=== PATIENT | male | born 1975 | race Caucasian/White ===

== ENCOUNTER 2017-05-25 22:32 | Inpatient (IN) | payer OTHER ==
[~2017-05-25] VITALS: Ht 182.9 cm; Wt 77.9 kg
[2017-05-25] MEDS ORDERED: SODIUM CHLORIDE FLUSH 10ML SYR IVF ONE (23:00)
[2017-05-25] MEDS ORDERED: SODIUM CHLORIDE 0.9% 1,000ML IVBOLUS ONE (23:00)
[2017-05-25 23:53] LABS: ASPARTATE AMINO TRANSFERASE 65 U/L (15-37)
[2017-05-26 00:05] LABS: BLOOD UREA NITROGEN 159 mg/dL (7-18)
[2017-05-26 00:06] LABS: IS PT STATUS REG ER OR PRE ER? YES
[2017-05-26] MEDS ORDERED: PIPERACILLIN/TAZO/PMX 3.375GM 50 ML ONE (00:28)
[2017-05-26] MEDS ORDERED: SODIUM CHLORIDE 0.9% 1,000ML IVBOLUS ONE ×2 (00:30)
[2017-05-26] MEDS ORDERED: VANCOMYCIN PER PHARMACY IV ONE (00:30)
[2017-05-26] MEDS ORDERED: VANCOMYCIN 1,500 MG in SODIUM CHLORIDE 0.9% 250 ML IV ONE (00:30)
[2017-05-26] MEDS ORDERED: PIPERACILLIN/TAZO/PMX 3.375GM 50 ML IVPB ONE (00:30)
[2017-05-26 00:36] LABS: DAU SCREEN DISCLAIMER
[2017-05-26] MEDS ORDERED: SODIUM CHLORIDE 0.9% 1,000 ML IV ONE (00:59)
[2017-05-26] MEDS ORDERED: ONDANSETRON 2MG/ML, 2ML IVPush PRN ×2 (01:00→02:00)
[2017-05-26] MEDS ORDERED: BISACODYL 10 MG SUPP PR PRN (02:00)
[2017-05-26] MEDS ORDERED: ACETAMINOPHEN 325 MG TABLET PO PRN (02:00)
[2017-05-26] MEDS ORDERED: POLYETHYLENE GLYCOL 17 GM PACKET PO PRN (02:00)
[2017-05-26] MEDS ORDERED: DOCUSATE 100 MG CAPSULE PO PRN (02:00)
[2017-05-26] MEDS: HEPARIN 5,000 UNITS/ML, 1ML SQ SCH ×3 (02:00→19:51)
[2017-05-26 02:01] VITALS: BP 155/99
[2017-05-26 02:47] VITALS: BP 156/99
[2017-05-26] MEDS: POTASSIUM CHLORIDE 20 MEQ in SODIUM CHLORIDE 0.9% 1,000 ML IV SCH ×3 (03:35→22:25)
[2017-05-26 04:16] LABS: POTASSIUM,URINE RANDOM 31 mmol/L
[2017-05-26 05:24] LABS: BLOOD UREA NITROGEN 147 mg/dL (7-18)
[2017-05-26 05:30] LABS: HIV 1&2 ANTIBODY SCREEN Nonreactive (Nonreactive); HIV-1 p24 ANTIGEN Nonreactive (Nonreactive)
[2017-05-26 05:42] LABS: ASPARTATE AMINO TRANSFERASE 58 U/L (15-37)
[2017-05-26 05:44] LABS: ACETAMINOPHEN < 2 mcg/mL (10-30)
[2017-05-26 06:01] LABS: DIFF TOTAL CELLS COUNTED 100 CELL DIFF
[2017-05-26 06:02] LABS: VERIFY COUNTS? YES
[2017-05-26 07:47] VITALS: BP 152/96
[2017-05-26] MEDS: POTASSIUM CHLORIDE 20 MEQ TAB.ER.PRT PO SCH ×5 (10:10→20:20)
[2017-05-26 10:35] LABS: HEPATITIS C VIRUS ANTIBODY Nonreactive (Nonreactive)
[2017-05-26 12:14] LABS: IS PT STATUS REG ER OR PRE ER? NO
[2017-05-26 12:32] LABS: BLOOD UREA NITROGEN 143 mg/dL (7-18)
[2017-05-26 14:31] VITALS: BP 155/84
[2017-05-26 16:36] LABS: ASPARTATE AMINO TRANSFERASE 63 U/L (15-37)
[2017-05-26 16:38] LABS: BLOOD UREA NITROGEN 127 mg/dL (7-18); IS PT STATUS REG ER OR PRE ER? NO
[2017-05-26 16:49] LABS: DIFF TOTAL CELLS COUNTED 100 CELL DIFF
[2017-05-26 16:53] LABS: VERIFY COUNTS? YES
[2017-05-26] MEDS ORDERED: POTASSIUM CHLORIDE 40 MEQ in SODIUM CHLORIDE 0.9% 500 ML IV ONE (17:00)
[2017-05-26] MEDS: CEFTRIAXONE PMX 1GM/50ML 50 ML IV SCH (19:51)
[2017-05-26 20:07] VITALS: BP 132/84
[2017-05-27 02:24] VITALS: BP_SYST 143; BP_SYST 154; BP_DIAS 103; BP_DIAS 79
[2017-05-27] MEDS: HEPARIN 5,000 UNITS/ML, 1ML SQ SCH ×3 (04:00→20:13)
[2017-05-27] MEDS: POTASSIUM CHLORIDE 20 MEQ in SODIUM CHLORIDE 0.9% 1,000 ML IV SCH (05:45)
[2017-05-27 06:02] LABS: ASPARTATE AMINO TRANSFERASE 62 U/L (15-37); TOTAL IRON BINDING CAPACITY 263 mcg/dL (250-450)
[2017-05-27 06:07] LABS: BLOOD UREA NITROGEN 110 mg/dL (7-18)
[2017-05-27 07:08] VITALS: BP 150/93
[2017-05-27 07:19] LABS: IS PT STATUS REG ER OR PRE ER? NO
[2017-05-27] MEDS ORDERED: POTASSIUM CHLORIDE 20 MEQ in SODIUM CHLORIDE 0.45% 1,000 ML IV SCH (08:00)
[2017-05-27] MEDS: POTASSIUM CHLORIDE 20 MEQ TAB.ER.PRT PO SCH ×2 (09:02→17:05)
[2017-05-27 11:25] LABS: IS PT STATUS REG ER OR PRE ER? NO
[2017-05-27 14:56] VITALS: BP 126/86
[2017-05-27 18:49] VITALS: BP 135/87
[2017-05-27] MEDS: CEFTRIAXONE PMX 1GM/50ML 50 ML IV SCH (20:14)
[2017-05-28 01:52] VITALS: BP 127/80
[2017-05-28] MEDS: HEPARIN 5,000 UNITS/ML, 1ML SQ SCH ×3 (04:42→22:28)
[2017-05-28 05:11] LABS: ASPARTATE AMINO TRANSFERASE 62 U/L (15-37); BLOOD UREA NITROGEN 57 mg/dL (7-18)
[2017-05-28] MEDS: POTASSIUM CHLORIDE 20 MEQ in SODIUM CHLORIDE 0.45% 1,000 ML IV SCH ×2 (05:20→16:34)
[2017-05-28 07:22] VITALS: BP 129/87
[2017-05-28] MEDS: POTASSIUM CHLORIDE 20 MEQ TAB.ER.PRT PO SCH ×2 (07:34→16:34)
[2017-05-28] MEDS: FAMOTIDINE 20 MG TABLET PO SCH ×2 (12:47→22:26)
[2017-05-28 12:48] VITALS: BP 132/86
[2017-05-28 19:42] VITALS: BP 134/98
[2017-05-28] MEDS: CEFTRIAXONE PMX 1GM/50ML 50 ML IV SCH (22:27)
[2017-05-29] MEDS: POTASSIUM CHLORIDE 20 MEQ in SODIUM CHLORIDE 0.45% 1,000 ML IV SCH ×3 (00:12→09:25)
[2017-05-29 04:22] VITALS: BP 134/92
[2017-05-29 05:22] LABS: ASPARTATE AMINO TRANSFERASE 44 U/L (15-37); BLOOD UREA NITROGEN 31 mg/dL (7-18)
[2017-05-29] MEDS: HEPARIN 5,000 UNITS/ML, 1ML SQ SCH ×3 (06:20→23:39)
[2017-05-29 06:47] VITALS: BP 132/89
[2017-05-29] MEDS: FAMOTIDINE 20 MG TABLET PO SCH ×2 (08:01→20:58)
[2017-05-29] MEDS ORDERED: MAGNESIUM SULFATE PMX 4GM/100M 100 ML IV ONE (08:30)
[2017-05-29] MEDS ORDERED: POTASSIUM PHOSPHATE 44 MEQ in SODIUM CHLORIDE 0.9% 500 ML IV ONE (08:30)
[2017-05-29] MEDS ORDERED: POTASSIUM CHLORIDE 20 MEQ TAB.ER.PRT PO ONE (08:30)
[2017-05-29 12:44] VITALS: BP 147/97
[2017-05-29] MEDS ORDERED: POLYETHYLENE GLYCOL 17 GM PACKET PO PRN (20:00)
[2017-05-29] MEDS ORDERED: ACETAMINOPHEN 325 MG TABLET PO PRN (20:00)
[2017-05-29] MEDS ORDERED: BISACODYL 10 MG SUPP PR PRN (20:00)
[2017-05-29] MEDS ORDERED: DOCUSATE 100 MG CAPSULE PO PRN (20:00)
[2017-05-29 20:39] VITALS: BP 141/93
[2017-05-30 04:02] VITALS: BP 124/86
[2017-05-30 05:32] LABS: ASPARTATE AMINO TRANSFERASE 48 U/L (15-37)
[2017-05-30 05:39] LABS: BLOOD UREA NITROGEN 22 mg/dL (7-18)
[2017-05-30] MEDS: POTASSIUM CHLORIDE 20 MEQ in SODIUM CHLORIDE 0.45% 1,000 ML IV SCH ×2 (05:54→18:02)
[2017-05-30 06:25] VITALS: BP 123/84
[2017-05-30] MEDS ORDERED: POTASSIUM PHOSPHATE 44 MEQ in SODIUM CHLORIDE 0.9% 500 ML IV ONE (08:00)
[2017-05-30] MEDS ORDERED: POTASSIUM CHLORIDE 20 MEQ TAB.ER.PRT PO SCH (08:00)
[2017-05-30] MEDS: HEPARIN 5,000 UNITS/ML, 1ML SQ SCH ×2 (08:23→16:55)
[2017-05-30] MEDS: FAMOTIDINE 20 MG TABLET PO SCH ×2 (08:27→21:37)
[2017-05-30 12:07] LABS: ALPHA-1-GLOBULIN 0.2 g/dL (0.0-0.4); BETA GLOBULIN 1.1 g/dL (0.7-1.3); GAMMA GLOBULIN 0.7 g/dL (0.4-1.8); PROTEIN TOTAL 5.9 g/dL (6.0-8.5)
[2017-05-30 12:28] VITALS: BP 136/83
[2017-05-30 13:07] LABS: UR ALBUMIN 70.4 % (.); UR ALPHA-1-GLOBULIN 2.2 % (.); UR ALPHA-2-GLOBULIN 9.1 % (.); UR BETA GLOBULIN 12.7 % (.); UR GAMMA GLOBULIN 5.7 % (.); UR M-SPIKE % Not Observed % (Not Observed)
[2017-05-30] MEDS ORDERED: MAGNESIUM SULFATE PMX 2GM/50ML 50 ML IV ONE (14:00)
[2017-05-30 20:37] VITALS: BP 110/67
[2017-05-31 00:15] VITALS: BP 108/73
[2017-05-31] MEDS ORDERED: ARTIFICIAL TEARS OPHTH SOLN 15ML EACHEYE PRN (01:00)
[2017-05-31] MEDS: HEPARIN 5,000 UNITS/ML, 1ML SQ SCH ×3 (01:41→16:59)
[2017-05-31] MEDS: POTASSIUM CHLORIDE 20 MEQ in SODIUM CHLORIDE 0.45% 1,000 ML IV SCH ×2 (04:18→14:44)
[2017-05-31 07:40] VITALS: BP 126/84
[2017-05-31] MEDS: FAMOTIDINE 20 MG TABLET PO SCH ×2 (08:48→20:13)
[2017-05-31 09:47] LABS: ASPARTATE AMINO TRANSFERASE 55 U/L (15-37); BLOOD UREA NITROGEN 14 mg/dL (7-18)
[2017-05-31] MEDS ORDERED: MAGNESIUM SULFATE PMX 4GM/100M 100 ML IV ONE (10:30)
[2017-05-31] MEDS: NEUTRA PHOS K 250 MG TABLET PO SCH ×3 (11:27→20:13)
[2017-05-31] MEDS: SUCRALFATE 1 GM/10 ML UDC PO SCH ×3 (11:28→20:13)
[2017-05-31 12:32] VITALS: BP 119/82
[2017-05-31 20:15] VITALS: BP 111/73
[2017-06-01] MEDS: POTASSIUM CHLORIDE 20 MEQ in SODIUM CHLORIDE 0.45% 1,000 ML IV SCH (00:34)
[2017-06-01] MEDS: HEPARIN 5,000 UNITS/ML, 1ML SQ SCH ×2 (00:34→08:47)
[2017-06-01 01:49] VITALS: BP 120/72
[2017-06-01 07:44] VITALS: BP 112/78
[2017-06-01] MEDS: FAMOTIDINE 20 MG TABLET PO SCH (08:46)
[2017-06-01] MEDS: NEUTRA PHOS K 250 MG TABLET PO SCH (08:46)
[2017-06-01] MEDS: SUCRALFATE 1 GM/10 ML UDC PO SCH (08:46)
[2017-06-01 10:45] LABS: BLOOD UREA NITROGEN 12 mg/dL (7-18)
[2017-06-01 10:49] LABS: ASPARTATE AMINO TRANSFERASE 36 U/L (15-37)
[2017-06-01] MEDS ORDERED: FAMO20TA7 PO (11:31)
[2017-06-01] MEDS ORDERED: PHOS250T3 PO (11:34)
[2017-06-03 03:07] LABS: ALDOSTERONE 1.3 ng/dL (0.0-30.0)
== END 2017-06-01 13:23 | disposition home or self-care (01) | DRG 682 ==
LOC: ED 23:59 → EDIP 05-26 01:33 → 4EST 05-26 02:27 → DCLOUNGE 06-01 12:29
DX: N17.0 Acute kidney failure with tubular necrosis (principal); G92 Toxic encephalopathy; E87.1 Hypo-osmolality and hyponatremia; E44.0 Moderate protein-calorie malnutrition; E87.3 Alkalosis; E87.0 Hyperosmolality and hypernatremia; E87.6 Hypokalemia; E83.52 Hypercalcemia; E86.0 Dehydration; D69.6 Thrombocytopenia, unspecified; D53.9 Nutritional anemia, unspecified; E86.1 Hypovolemia; F12.90 Cannabis use, unspecified, uncomplicated; D75.89 Other specified diseases of blood and blood-forming organs; R74.0 Nonspecific elevation of levels of transaminase and lactic acid dehydrogenase [LDH]; K21.9 Gastro-esophageal reflux disease without esophagitis; E83.42 Hypomagnesemia; E83.39 Other disorders of phosphorus metabolism; F17.210 Nicotine dependence, cigarettes, uncomplicated; D72.829 Elevated white blood cell count, unspecified; K29.70 Gastritis, unspecified, without bleeding; N18.9 Chronic kidney disease, unspecified; Z68.23 Body mass index [BMI] 23.0-23.9, adult; Z83.3 Family history of diabetes mellitus; Z82.49 Family history of ischemic heart disease and other diseases of the circulatory system; Z87.442 Personal history of urinary calculi
CPT/HCPCS: 36415; 70450; 71010; 76700; 76770; 80048; 80053; 80074; 80307; 80329; 81001; 81003; 82010; 82088; 82140; 82150; 82306; 82397; 82436; 82533; 82550; 82553; 82570; 82607; 82652; 82693; 82728; 82746; 83540; 83550; 83605; 83690; 83735; 83930; 83970; 84100; 84133; 84145; 84155; 84156; 84165; 84166; 84244; 84300; 84443; 84484; 84550; 85025; 85610; 86703; 87040; 87086; 87899; 93005; 93306; 96361; 96365; 96367; J0696; J1644; J2543; J3370; J3480; G0435; G0480; J3475; J7030; J7040; J7050